=== PATIENT | female | born 1950 | race Caucasian/White ===

== ENCOUNTER → 2018-11-08 | Outpatient (REF) | payer BC | LOC: M LAB REF 09:48 | PROVIDERS: ATTEND Physician Assistant | DX: N39.0 Urinary tract infection, site not specified (principal) ==

== ENCOUNTER → 2019-11-13 | Outpatient (REF) | payer BC | LOC: M LAB REF 17:54 | PROVIDERS: ATTEND Physician Assistant Medical | DX: N39.0 Urinary tract infection, site not specified (principal) ==

== ENCOUNTER → 2020-10-14 | Outpatient (CLI) | payer BC ==
--- NOTE | 2020-10-15 19:32 | REPVR ---
PROCEDURE INFORMATION: Exam: MR Thoracic Spine Without Contrast Exam date and time: 10/14/2020 4:13 PM Age: 70 years old Clinical indication: Weakness; Additional info: Aram leg weakness, stage 3 rectal CA, ? epidural mt TECHNIQUE: Imaging protocol: Multiplanar magnetic resonance images of the thoracic spine without contrast. COMPARISON: No relevant prior studies available. FINDINGS: Thoracic vertebral body heights are maintained. Suspected vertebral body hemangioma within the T4 and T7 vertebral bodies. No evidence of acute thoracic spine fracture. No cord compression. No abnormal cord signal. Thoracic kyphosis is preserved. Thoracic disc space heights are unremarkable. Soft tissues are unremarkable. IMPRESSION: 1. No acute findings in the thoracic spine. 2. Chronic findings, as above. Electronically signed by: Amado Treviño On 10/15/2020 19:32:24 PM
--- NOTE | 2020-10-15 19:36 | REPVR ---
PROCEDURE INFORMATION: Exam: MR Lumbar Spine Without Contrast Exam date and time: 10/14/2020 4:28 PM Age: 70 years old Clinical indication: Weakness; Additional info: Aram leg weakness, stage 3 rectal CA, ? epidural mt TECHNIQUE: Imaging protocol: Multiplanar magnetic resonance images of the lumbar spine without intravenous contrast. COMPARISON: MRI-Spine,Thoracic without con 10/14/2020 3:28 PM FINDINGS: Vertebral body heights are maintained. No abnormal marrow signal. Stepwise 0.3 cm anterolisthesis of L3 on L4 and L4 on L5. No cord compression. No abnormal cord signal. Conus medullaris terminates at the L1 level. Paravertebral soft tissues are unremarkable. L1-L2: No significant canal or foraminal narrowing. L2-L3: No significant canal or foraminal narrowing. L3-L4: Combination of anterolisthesis, broad-based disc bulge, and facet hypertrophy cause mild to moderate canal narrowing with effacement of the bilateral lateral recesses. Mild bilateral foraminal narrowing. L4-L5: Combination of anterolisthesis, broad-based disc bulge, and facet hypertrophy cause mild canal narrowing. Mild to moderate bilateral foraminal narrowing. L5-S1: No significant canal or foraminal narrowing. IMPRESSION: 1. No acute findings in the lumbar spine. 2. Multilevel spondylotic changes of the lumbar spine, as above. Electronically signed by: Amado Treviño On 10/15/2020 19:35:39 PM
== END ==
LOC: M PLAIMG 14:41
PROVIDERS: ATTEND Internal Medicine
DX: R53.1 Weakness (principal); C20 Malignant neoplasm of rectum

== ENCOUNTER 2020-11-04 10:45 | Outpatient (CLI) | payer BC ==
[2020-11-04 10:45] VITALS: BP 147/65
[~2020-11-04 10:45] MED LIST: SODIUM CHLORIDE 0.9% INJ 10 ML SYR IV SCH
== END 2020-11-04 11:15 | disposition home or self-care (01) ==
LOC: M INFU 10:45
PROVIDERS: ATTEND Internal Medicine
DX: C20 Malignant neoplasm of rectum (principal)
CPT/HCPCS: 96523; J1642

== ENCOUNTER → 2020-11-09 | Outpatient (CLI) | payer BC ==
[~2020-11-09] MED LIST changes: +GASTROGRAFIN SOLUTION 30ML (Q9963) As Ordered ONE; +ISOVUE-370 76% 100ML VIAL As Ordered ONE; -SODIUM CHLORIDE 0.9% INJ 10 ML SYR IV SCH
--- NOTE | 2020-11-11 17:07 | REP ---
INDICATION: F/U STAGE 3 RECTAL CA COMPARISON: 06/01/2020 from an outside institution CT angiography of the chest after contrast TECHNIQUE: Standard helical technique after the intravenous administration of 100 cc Isovue 370. FINDINGS: There is no mediastinal or hilar adenopathy. There are no pleural or pericardial effusions. The imaged upper abdomen is within normal limits. There is an incidental sub cm sized cyst in the medial segment of the left lobe of the liver. The imaged osseous structures are within normal limits. Evaluation of the lung poe shows resolution of the previously present patchy ground-glass opacities in the right upper lobe. There are bilateral lower lobe patchy and asymmetric densities which have also improved. There is cylindrical bronchiectasis. There is evidence of early verrucoid bronchiectasis in the lower lobes. No new abnormal nodules, masses, or opacities have developed. IMPRESSION: There has been lung field improvement with chronic lung field changes as described above. There is no revised Fleischner society criteria on the recommendation for follow-up of such findings. Follow-up should be based on clinical assessment. <Electronically signed by Lonnie Herron > 11/11/20 [id number]
== END ==
LOC: M RAD 13:23
PROVIDERS: ATTEND Internal Medicine
DX: C20 Malignant neoplasm of rectum (principal)
CPT/HCPCS: 71260; 74178; J1642; Q9963; Q9967

== ENCOUNTER → 2020-11-14 | Outpatient (CLI) | payer BC ==
--- NOTE | 2020-11-23 12:25 | REP ---
INDICATION: RESTAGING RECTAL CANCER C20. A no rectal adenocarcinoma. Post chemotherapy. Post radiation therapy. COMPARISON: Comparison CT study of the abdomen and pelvis [address] chest 09 November 2020. Report of a PET-CT study from April 25, 2020 describes mild FDG uptake in the anal rectal junction region and 2 hypermetabolic right inguinal lymph nodes along with a hypermetabolic left axillary lymph node. Images from this study could not be retrieved despite multiple attempts. TECHNIQUE: Fifty-six minutes following the intravenous injection of a 8.76 mCi dose of F-18 FDG, three-dimensional PET scintigraphy is acquired from the skull base to the proximal thighs. Triplanar noncontrast CT scanning is acquired through the same anatomic range for attenuation correction, and image registration with scan parameters optimized to minimize radiation exposure to the patient. PET scintigraphy and CT datasets were fused and displayed on a workstation with multiplanar and projection display capability. FINDINGS: Head and neck soft tissue uptake is unremarkable. There is a right-sided Ktwlks-Y-Cfis catheter. There is no abnormal hypermetabolic uptake in the lung parenchyma. No hilar or mediastinal hypermetabolic michelet uptake is seen. In the abdomen and pelvis, there is normal hepatic, splenic, gastrointestinal, and genitourinary FDG accumulation. No abnormal hypermetabolic uptake focus is seen within the abdomen or pelvis. There is no evidence of left or right axillary hypermetabolic adenopathy. No inguinal or pelvic adenopathy is seen on either side. No abnormal inguinal uptake is noted. There are 2 tiny subcentimeter subcutaneous nodules 1 in each side of the mid abdomen anteriorly which may reflect subcutaneous injection sites. These are not hypermetabolic. Study is otherwise unremarkable. No abnormal skeletal uptake is seen. IMPRESSION: No suspicious hypermetabolic uptake focus is seen. <Electronically signed by Siva Méndez > 11/23/20 1200
== END ==
LOC: M PLARAD 08:06
PROVIDERS: ATTEND Internal Medicine
DX: C20 Malignant neoplasm of rectum (principal)
CPT/HCPCS: 78815; A9552

== ENCOUNTER → 2020-11-22 | Outpatient (REF) | payer BC ==
[~2020-11-22] MED LIST changes: +DOXE150C PO; -GASTROGRAFIN SOLUTION 30ML (Q9963) As Ordered ONE; -ISOVUE-370 76% 100ML VIAL As Ordered ONE; +SYNT88TA2 PO; +XARE10TA PO
== END ==
LOC: M LAB REF 16:00
PROVIDERS: ATTEND Nurse Practitioner Adult Health
DX: N39.0 Urinary tract infection, site not specified (principal)

== ENCOUNTER → 2020-12-13 | Outpatient (POV) | payer BC ==
[~2020-12-13] VITALS: Ht 157.5 cm; Wt 65.9 kg
[2020-12-13 09:50] VITALS: BP 124/72
--- NOTE | 2020-12-14 13:20 | IRCOV ---
[facility] IR Consult Office Visit IR Consult Office Visit DATE: Dec 13, 2020 REASON FOR CONSULTATION/CHIEF COMPLAINT: Port removal. HISTORY OF PRESENT ILLNESS: 70-year-old female with history of rectal cancer, had a right-sided port placed by a surgeon in [place], in May 2020. Her rectal cancer was treated with chemoradiation and she received her last chemotherapy in August 2020. She is referred for port removal. Patient has no plans to go to [place] and does not want to see her surgeon to have the port removed. She would like for me to remove her port. She reports the port worked well. No pain, fevers or chills. She does report that she suffered a pneumothorax at the time of port placement in [place]. She was diagnosed with deep vein thrombosis greater than 6 months ago and continues on Xarelto. She denies PE. She reports tremors with Zofran. ALLERGIES: Please see below. HOME MEDICATIONS: Please see below. PAST MEDICAL HISTORY: DVT Hypothyroidism Graves' disease Asthma PAST SURGICAL HISTORY: Right-sided port placed at outside hospital FAMILY HISTORY: Noncontributory. SOCIAL HISTORY: Non-smoker. Denies alcohol or drugs. REVIEW OF SYSTEMS: Otherwise negative. PHYSICAL EXAMINATION: VITAL SIGNS: Please see below. GENERAL APPEARANCE: Appears well. Comfortable at rest. HEENT: No scleral icterus. RESPIRATORY: Normal breathing at rest. CARDIOVASCULAR: Normal rate. ABDOMEN: Soft nontender. EXTREMITIES: No edema. NEUROLOGICAL: Alert and oriented. PSYCHIATRIC: Appropriate to circumstance. LABORATORY DATA: None in the [facility] system. Imaging: I personally reviewed her CT chest with contrast performed 11/09/2020. Right sided port, enters at IJ subclavian junction. ASSESSMENT/PLAN: 70-year-old female with history of rectal cancer and right- sided port placed at outside hospital. Patient would like her port removed. I am happy to remove this port. We discussed the risks and benefits of the procedure and patient agreed to proceed. We have scheduled the patient for port removal. She will need to stop her Xarelto for 48 hours for the procedure however, she is advised to consult her PCP prior to stopping any medication. Please send us any recent lab work performed on this patient. I spent 30 minutes reviewing patient's records, imaging and in consultation with the patient. Thank you for this referral. CC Dr. Burris CC EVANGELINA Mensah Allergies Coded Allergies: erythromycin base (Verified Allergy, Unknown, 11/04/20) VS, I&O, 24H, Fishbone Vital Signs/I&O Vital Signs Date Time Temp Pulse Resp B/P (MAP) Pulse Ox O2 Delivery O2 Flow Rate FiO2 12/13/20 09:50 97.8 70 18 124/72 (89) 99 Room Air GWENDOLYN QUISPE MD Dec 14, 2020 13:20
== END ==
LOC: M IRPOV 09:40
PROVIDERS: ATTEND Radiology Diagnostic Radiology
DX: C20 Malignant neoplasm of rectum (principal); E03.9 Hypothyroidism, unspecified; E05.00 Thyrotoxicosis with diffuse goiter without thyrotoxic crisis or storm; J45.909 Unspecified asthma, uncomplicated; Z45.2 Encounter for adjustment and management of vascular access device; Z86.718 Personal history of other venous thrombosis and embolism; Z79.01 Long term (current) use of anticoagulants

== ENCOUNTER → 2020-12-26 | Outpatient (CLI) | payer BC ==
[~2020-12-26] MED LIST changes: +LIDOCAINE 1% MDV 20ML VIAL As Ordered ONE; +MIDAZOLAM INJ 2MG/2ML VIAL (J2250 PER 1MG) As Ordered ONE; +NS 1,000 ML IV SCH; +ceFAZolin 1GM VIAL (J0690 PER 500MG) As Ordered ONE; +ceFAZolin SOD 2 GM in IV 1 EA IV ONE; +diphenhydrAMINE 50MG/ML VIAL (J1200) As Ordered ONE; +fentaNYL 100 MCG/2 ML INJECTION (J3010) As Ordered ONE
[2020-12-26 13:26] LABS: HEMATOCRIT 37.7 % (36.0-47.0); HEMOGLOBIN 12.4 g/dl (12.0-15.5); MEAN CORPUSCULAR HEMOGLOBIN 31.1 pg (27.0-33.0); MEAN CORPUSCULAR HGB CONC 32.9 g/dl (32.0-36.5); MEAN CORPUSCULAR VOLUME 94.5 fl (80.0-96.0); PLATELET COUNT, AUTOMATED 140 10^3/uL (150-450); RED BLOOD COUNT 3.99 10^6/uL (4.00-5.40); WHITE BLOOD COUNT 4.2 10^3/uL (4.0-10.0)
--- NOTE | 2020-12-26 13:39 | IRHP ---
[facility] IR Pre-Procedure H & P General Date of Service: Dec 26, 2020 Procedure: Same Day Surgery Interval History and Physical I have seen the patient and reviewed last H & P performed within 30 days. There is no significant interval change. History of Present Illness Chief Complaint The patient is a 70-year-old female admitted with a reason for visit of Rectal Ca. PRE-PROCEDURE DIAGNOSIS: rectal ca HEART: normal rate. LUNGS: normal breathing at rest. ASA Classification ASA Classification: II-Mild systemic disease Mallampati Score: II NPO: Yes Problems with prior sedation: No Obstructive Sleep Apnea: No Plan moderate sedation Allergies Coded Allergies: erythromycin base (Verified Allergy, Unknown, 11/04/20) Home Medications Scheduled Levothyroxine Sodium (Synthroid), 1 TAB PO DAILY, (Reported) Rivaroxaban (Xarelto), 10 MG PO DAILY, (Reported) Miscellaneous Medications Doxepin Hcl (Doxepin HCl), 150 MG PO, (Reported) VS, I&O, 24H, Fishbone Vital Signs/I&O Vital Signs Date Time Temp Pulse Resp B/P (MAP) Pulse Ox O2 Delivery O2 Flow Rate FiO2 12/26/20 13:01 98.0 66 18 100 Room Air Laboratory Data 24H LABS Laboratory Tests 2 12/26/20 13:09: Nucleated Red Blood Cells % (auto) 0.0 CBC/BMP Laboratory Tests 12/26/20 13:09 GWENDOLYN QUISPE MD Dec 26, 2020 13:39
[2020-12-26 16:00] VITALS: BP 111/59
--- NOTE | 2020-12-29 16:46 | IRPON ---
IR Postoperative Note Date Of Procedure: Dec 26, 2020 Time Of Procedure: 16:00 IR Postoperative Note IR Port Removal / Explant. IR Moderate sedation. Clinical Information:Rectal cancer. Treatment complete. Port placed at outside hospital. Patient would like port removed. Physician: Dr. Vazquez Procedure: The patient was advised of the benefits, risks, and alternatives of the procedure and informed consent was obtained. A time out was performed with verification of the patient's name, MRN, site of procedure, and type of procedure to be performed. The patient was positioned in the supine position on the angiographic table. The site was prepped and draped in the usual sterile fashion. Moderate sedation was performed by the physician including the presence of an independent trained RN who assisted in monitoring the patient's level of consciousness and physiological status. Following the administration of fentanyl and Versed the physician spent 30 minutes of continuous [id number] time with the patient. A engine cleaner radiograph reveals a right sided port. The soft tissues overlying the port were anesthetized with lidocaine. An incision was made over the port using a 15 blade scalpel in the location of the prior incision. The catheter was then freed with blunt dissection and extrac galilea. Pressure was applied to obtain hemostasis. The port was then freed with blunt dissection and subsequently removed. There were no signs of infection. After hemostasis was achieved, the incision was closed with interrupted deep 3-0 Vicryl sutures and subcuticular Monocryl suture followed by glue and steri- strips. The site was covered with a sterile dressing. The patient tolerated the procedure well and was returned to the PRU in stable condition. EBL:Less than 5 mL Complications:None. Conclusions: 1. Successful explant of a right-sided port. 2. No signs of infection. Thank you for this referral. CC GWENDOLYN Marcano MD Dec 29, 2020 16:46
== END ==
LOC: M IRPRO 12:29
PROVIDERS: ATTEND Radiology Diagnostic Radiology
DX: Z45.2 Encounter for adjustment and management of vascular access device (principal); C20 Malignant neoplasm of rectum; Z88.1 Allergy status to other antibiotic agents; Z79.890 Hormone replacement therapy; Z79.01 Long term (current) use of anticoagulants
CPT/HCPCS: 36415; 36590; 85027; 99152; 99153; J0690; J1644; J2250; J3010

== ENCOUNTER → 2021-01-10 | Outpatient (POV) | payer BC ==
[~2021-01-10] VITALS: Ht 157.5 cm; Wt 66.3 kg
[~2021-01-10] MED LIST changes: -LIDOCAINE 1% MDV 20ML VIAL As Ordered ONE; -MIDAZOLAM INJ 2MG/2ML VIAL (J2250 PER 1MG) As Ordered ONE; -NS 1,000 ML IV SCH; -ceFAZolin 1GM VIAL (J0690 PER 500MG) As Ordered ONE; -ceFAZolin SOD 2 GM in IV 1 EA IV ONE; -diphenhydrAMINE 50MG/ML VIAL (J1200) As Ordered ONE; -fentaNYL 100 MCG/2 ML INJECTION (J3010) As Ordered ONE
[2021-01-10 08:40] VITALS: BP 129/71
--- NOTE | 2021-01-12 10:01 | IRPN ---
[facility] IR Progress Note IR Progress Note DATE: Jan 10, 2021 FOLLOW-UP: Status post port removal. Patient reports doing well. No fevers, chills or pain at site. ON EXAMINATION: Port removal site appears to be healing well. No redness, swelling or discharge at site. IMPRESSION: Doing well status post port removal. No further follow-up scheduled unless initiated by patient and/or referring provider. Thank you for this referral Allergies Coded Allergies: erythromycin base (Verified Allergy, Unknown, 11/04/20) VS,Fishbone, I+O VS, Fishbone, I+O Vital Signs Date Time Temp Pulse Resp B/P (MAP) Pulse Ox O2 Delivery O2 Flow Rate FiO2 01/10/21 08:40 97.9 75 20 129/71 (90) 97 GWENDOLYN QUISPE MD Jan 12, 2021 10:00
== END ==
LOC: M IRPOV 08:28
PROVIDERS: ATTEND Radiology Diagnostic Radiology
DX: Z45.2 Encounter for adjustment and management of vascular access device (principal)

== ENCOUNTER → 2022-08-31 | Outpatient (CLI) | payer BC | LOC: M SOG 08:56 | PROVIDERS: ATTEND Physician Assistant | DX: M16.0 Bilateral primary osteoarthritis of hip (principal) ==

== ENCOUNTER → 2022-11-29 | Outpatient (CLI) | payer BC ==
[~2022-11-29] MED LIST changes: +GASTROGRAFIN SOLUTION 30ML As Ordered ONE; +ISOVUE-370 76% 100ML VIAL As Ordered ONE
== END ==
LOC: M RAD 12:20
PROVIDERS: ATTEND Internal Medicine
DX: C20 Malignant neoplasm of rectum (principal)
CPT/HCPCS: 74177; Q9963; Q9967

== ENCOUNTER → 2022-12-03 | Outpatient (CLI) | payer BC ==
[~2022-12-03] MED LIST changes: -GASTROGRAFIN SOLUTION 30ML As Ordered ONE; -ISOVUE-370 76% 100ML VIAL As Ordered ONE
== END ==
LOC: M SOG 10:11
PROVIDERS: ATTEND Orthopaedic Surgery
DX: Z96.652 Presence of left artificial knee joint (principal)